=== PATIENT | male | born 1970 | race Caucasian/White ===

== ENCOUNTER → 2022-04-17 17:51 | Outpatient (CLI) | payer OTHER, SELFPAY ==
--- NOTE | 2022-04-17 17:55 | DI.MRI.S_ITS ---
PROCEDURE: MR LUMBAR SPINE WO CON INDICATIONS: Spinal stenosis, lumbar region without neurogenic TECHNIQUE: Noncontrast sagittal T1 spin echo and T2 fast echo, sagittal STIR, and T2 fast spin echo through the lumbar spine. In cases with scoliosis, additional coronal T2 fast spin echo may be performed. COMPARISON: [facility], CR, XR LUMBAR SPINE 2 OR 3 VIEWS, 04/10/2022, 9:51. [facility], MR, L-SPINE WITHOUT CONTRAST, 12/04/2011, 9:28. FINDINGS: Image quality: Excellent. Alignment and Curvature: There is stable bony alignment with minimal grade 1 retrolisthesis of L4 on L5 and L5 on S1. Bone Marrow: Marrow is of normal overall signal. No acute vertebral body compression fractures. There are T1/T2 hyperintensities noted within the vertebral body of L3 and L4 compatible with hemangiomas. Spinal Cord: Conus medullaris terminates at the L2 level. Visualized cord demonstrates normal signal and size. Paraspinous Soft Tissues: No paravertebral masses. T12-L1: Normal appearance. L1-L2: Mild bilateral facet arthropathy. Minimal ligamentum flavum hypertrophy. No significant neural foraminal or spinal canal stenosis. L2-L3: Degenerative endplate changes. Small symmetric disc bulge. Bilateral facet arthropathy. Minimal ligamentum flavum hypertrophy. Mild left neural foraminal stenosis. No significant right neural foraminal or spinal canal stenosis. L3-L4: Moderate bilateral facet arthropathy and ligamentum flavum hypertrophy. Moderate-sized symmetric disc bulge. Degenerative endplate changes. Mild bilateral neural foraminal stenosis. Mild-moderate spinal canal stenosis. L4-L5: Degenerative endplate changes. Moderate bilateral facet arthropathy. Ligamentum flavum hypertrophy. Moderate symmetric disc bulge. Mild bilateral neural foraminal stenosis. Mild spinal canal stenosis. L5-S1: Degenerative endplate changes with moderate disc space loss. Moderate bilateral facet arthropathy. Slightly eccentric to the left broad-based disc bulge. Findings result in moderate bilateral neural foraminal stenosis more pronounced on the left. Minimal spinal canal stenosis. IMPRESSION: Lumbar spine without acute abnormalities. Multilevel, multifactorial lumbar spondylosis as detailed above by vertebral body level. Degenerative changes have progressed compared to the prior study. Dictated by: Pavan Mahan M.D. on 04/18/2022 at 7:34 Approved by: Pavan Mahan M.D. on 04/18/2022 at 11:27
== END ==
PROVIDERS: Referring Provider Orthopaedic Surgery Orthopaedic Surgery of the Spine; Visit Provider Orthopaedic Surgery Orthopaedic Surgery of the Spine
DX: M48.061 Spinal stenosis, lumbar region without neurogenic claudication (principal); M47.816 Spondylosis without myelopathy or radiculopathy, lumbar region; M47.817 Spondylosis without myelopathy or radiculopathy, lumbosacral region
CPT/HCPCS: 72148

== ENCOUNTER 2023-04-24 14:23 | Emergency (ER) | payer OTHER, SELFPAY ==
[2023-04-24 14:32] VITALS: BP 166/98; PULSE 73; RESP 17; TEMP 36.6; O2SAT 97; BMI 32.5
--- NOTE | 2023-04-24 14:38 | ED.SKABFB ---
HPI - Skin/Abscess/Foreign Bdy <TOI Slaughter - Last Filed: 04/24/23 15:00> General Chief complaint: Skin/Abscess/Foreign Body Stated complaint: Poss spider bite, Skin peeling off fingers Time Seen by Provider: 04/24/23 14:38 Source: patient Mode of arrival: Ambulatory History of Present Illness HPI narrative: This is a 52-year-old gentleman who presents emergency department with peeling skin from his fingers on his left hand due to a reported spider bite 1.5 weeks ago. He states that when this happened he had swelling of his fingers and then the swelling is gone down, he has peeling, swelling, some redness and patient reports that he thinks that the infection has moved to his 4th finger on the left hand and involves both his 3rd and 4th digit. He has been using topical hydrocortisone 10 for the itching and ibuprofen for his pain. Related Data Previous Rx's Medication Instructions Recorded cephalexin 500 mg capsule 500 mg PO QID 7 days #28 caps 04/24/23 doxycycline hyclate 100 mg capsule 100 mg PO BID 7 days #14 caps 04/24/23 prednisone 20 mg tablet 20 mg PO DAILY #3 tabs 04/24/23 Allergies Allergy/AdvReac Type Severity Reaction Status Date / Time No Known Drug Allergies Allergy Verified 04/24/23 14:32 Review of Systems <TOI Slaughter - Last Filed: 04/24/23 15:00> Review of Systems ROS Unobtainable: All systems reviewed & are unremarkable except as noted in HPI and below Patient History <TOI Slaughter - Last Filed: 04/24/23 15:00> Social History Smoking Status: Never smoker Smoking Status: Never smoker alcohol intake frequency: holidays/special occasions only Substance Use Type: does not use Exam <TOI Slaughter - Last Filed: 04/24/23 15:00> Narrative Exam Narrative: MSK: Skin: Initial Vital Signs Initial Vital Signs: Vital Signs Temperature 97.8 F 04/24/23 14:32 Pulse Rate 73 04/24/23 14:32 Respiratory Rate 17 04/24/23 14:32 Blood Pressure 166/98 H 04/24/23 14:32 Pulse Oximetry 97 04/24/23 14:32 Oxygen Delivery Method Room Air 04/24/23 14:32 <Gee Pappas DO - Last Filed: 04/25/23 20:01> Initial Vital Signs Initial Vital Signs: Vital Signs Temperature 97.8 F 04/24/23 14:32 Pulse Rate 73 04/24/23 14:32 Respiratory Rate 17 04/24/23 14:32 Blood Pressure 166/98 H 04/24/23 14:32 Pulse Oximetry 97 04/24/23 14:32 Oxygen Delivery Method Room Air 04/24/23 14:32 Course <Natacha Sky [facility] - Last Filed: 04/24/23 15:00> Orders Ordered: Discontinued Medications Cephalexin HCl (Cephalexin 250 Mg Capsule) 500 mg PO NOW ONE Stop: 04/24/23 14:49 Last Admin: 04/24/23 15:05 Dose: 500 mg Documented By: RHONDA Doxycycline Hyclate (Doxycycline Hyclate 100 Mg Tablet) 100 mg PO NOW ONE Stop: 04/24/23 14:49 Last Admin: 04/24/23 15:05 Dose: 100 mg Documented By: RHONDA Prednisone (Prednisone 20 Mg Tablet) 20 mg PO NOW ONE Stop: 04/24/23 14:56 Last Admin: 04/24/23 15:05 Dose: 20 mg Documented By: RHONDA Vital Signs Vital signs: Vital Signs - 8 hr 04/24/23 14:32 Temperature 97.8 F Pulse Rate 73 Respiratory Rate 17 Blood Pressure 166/98 H Pulse Oximetry 97 Oxygen Delivery Method Room Air <Gee Pappas DO - Last Filed: 04/25/23 20:01> Orders Ordered: Discontinued Medications Cephalexin HCl (Cephalexin 250 Mg Capsule) 500 mg PO NOW ONE Stop: 04/24/23 14:49 Last Admin: 04/24/23 15:05 Dose: 500 mg Documented By: RHONDA Doxycycline Hyclate (Doxycycline Hyclate 100 Mg Tablet) 100 mg PO NOW ONE Stop: 04/24/23 14:49 Last Admin: 04/24/23 15:05 Dose: 100 mg Documented By: RHONDA Prednisone (Prednisone 20 Mg Tablet) 20 mg PO NOW ONE Stop: 04/24/23 14:56 Last Admin: 04/24/23 15:05 Dose: 20 mg Documented By: RHONDA Vital Signs Vital signs: Vital Signs - 8 hr 04/24/23 14:32 Temperature 97.8 F Pulse Rate 73 Respiratory Rate 17 Blood Pressure 166/98 H Pulse Oximetry 97 Oxygen Delivery Method Room Air MDM - Skin/Abscess/Foreign Bdy <Natacha Sky [employer] - Last Filed: 04/24/23 15:00> [facility] Narrative Medical decision making narrative: Chief Complaint: Multiple etiologies for patient's complaint considered including, but not limited to: Insect allergy, Cellulitis, necrotizing soft tissue infection, streptococcal infection, dress syndrome, dermatitis, erythema multiform This patient presents with initial presentation of local erythema, warmth, swelling and skin peeling from a reported insect bite that he did not visualized. At this point, this is concerning for cellulitis and a local hypersensitivity reaction.. Patient is afebrile with a negative Nikolsky sign. Sensitivity/pain to light touch around the erythematous area. No lymphangitic spread visible and no fluid pockets or fluctuance concerning for abscess noted. No immune compromise, bullae, pain out of proportion, or rapid progression concerning for necrotizing fasciitis. Exam without sensation changes, nerves and tendons intact, no crepitus. Patient to be discharged home with cephalexin and doxycycline with 3 days of prednisone 20 mg for hypersensitivity reaction. I have independently reviewed the patient's vital signs and nursing notes as well as prior records if available. Plan: Patient reports that his tetanus is up-to-date. He has full range of motion of his fingers including flexion extension and no pain with passive extension, I do not suspect flexor tenosynovitis at this point. Social considerations that may affect disposition: none Questions are addressed and there is agreement with the plan and for follow-up. I consulted with the ED attending physician Dr. Pappas as needed for higher level of care considerations and they were available for discussion and recommendations regarding plan of care and diagnostic testing. Patient is appropriate for outpatient management. Discharge Plan Departure Patient Disposition: Home Clinical Impression: Insect bite of hand with local reaction Qualifiers: Encounter type: initial encounter Laterality: left Qualified Code(s): S60.562A - Insect bite (nonvenomous) of left hand, initial encounter Instructions: How to Care for an Insect Bite or Sting, Insect Allergy Activity Restrictions/Additional Instructions: *You have been diagnosed with insect bites with an increased hypersensitivity reaction and or this is turning into a skin infection called cellulitis. I have given you to antibiotics to take for the next 7 days to treat this for infection, please continue with your topical hydrocortisone ointment up to 4 times a week, it can cause thinning of the skin which will make her skin more sensitive that is why we use a holiday day or 2 in between applications. Okay to use Benadryl at night before bed for as long as your having swelling and redness to this area. This could be a hypersensitivity reaction from the insect bite itself in you are having allergic reaction symptoms. Please start taking Zyrtec/cetirizine 10 mg daily for the next 1-2 weeks until your symptoms are improved. Okay to use ibuprofen in addition to these things. It could be any other insect in the grasses as well, I hope you start feeling better soon, please come back if you have progression of this, redness or streaking up your arm, fever chills or if you have decreased mobility of your hand due to infection. I have given you 3 days of prednisone, please take this in the morning with food and water, this is to help with the swelling and local reaction. You received your 1st dose here in the emergency department, start the home dose tomorrow and take a total of 3 tabs of cephalexin for a total of 4 tabs in a day before bed, and a 2nd doxycycline later today. He received the 1st dose of both of these medicines in the emergency *What to do: *Please continue to take your regular medications as directed. [ x] New medication prescriptions sent to your pharmacy: [ [facility]] [ ] New medication written as a paper prescription [ ] No new medications given *Please call and schedule follow up with your primary care provider in 2-3 days, at least for an update. Let them know you were seen in the Emergency Department for the above problem. We will electronically transmit a record of today's note if your PCP or specialist is in our system. *If you do not have a primary care provider please contact [phone] to establish care with one of the [facility] primary care providers. *Return to the Emergency Department for worsening symptoms, inability to keep liquids down, fever greater than 101F, chills, or other concerning symptom. Prescriptions: New cephalexin 500 mg capsule 500 mg PO QID 7 Days Qty: 28 0RF prednisone 20 mg tablet 20 mg PO DAILY Qty: 3 0RF doxycycline hyclate 100 mg capsule 100 mg PO BID 7 Days Qty: 14 0RF Referrals: Provider,Nita BAUTISTA [Primary Care Provider] - Stand Alone Forms: Patient Portal/API <Gee Pappas DO - Last Filed: 04/25/23 20:01> Cosign ED Attending Daren Attestation: I was immediately available in the department for consultation. Documentation has been reviewed. I agree with assessment and plan.
[2023-04-24] MEDS: DOXYCYCLINE HYCLATE 100 MG TABLET PO (15:05)
[2023-04-24] MEDS: cephALEXin 250 MG CAPSULE 500 MG PO (15:05)
[2023-04-24] MEDS: predniSONE 20 MG TABLET PO (15:05)
--- NOTE | 2023-04-24 15:14 | PC.NURSE ---
Patient reports he believes he may have gotten an insect bite a week ago in [place] on Left 3rd finger. Was staying in his own camper at the time. He states the finger became swollen, red, painful, and itchy. After a few days, the swelling went down and then his 4th finger began having the same type of reaction with swelling redness. There are also some nodules that are small and able to be palpated under the skin around, on and around the fingers. The skin on both fingers is peeling.
== END 2023-04-24 15:18 | disposition home or self-care (01) ==
PROVIDERS: Emergency Provider Nurse Practitioner Critical Care Medicine
DX: S60.463A Insect bite (nonvenomous) of left middle finger, initial encounter (principal); S60.461A Insect bite (nonvenomous) of left index finger, initial encounter; W57.XXXA Bitten or stung by nonvenomous insect and other nonvenomous arthropods, initial encounter
CPT/HCPCS: 99283